=== PATIENT | female | born 1950 | race Two or more races ===

== ENCOUNTER 2020-07-10 10:15 | Outpatient (CLI) | payer MEDICARE, SELFPAY | END 2020-07-10 10:16 | disposition home or self-care (01) | LOC: ANHLAB 10:21 | PROVIDERS: Visit Provider Internal Medicine Hematology & Oncology | DX: D50.9 Iron deficiency anemia, unspecified (principal) | CPT/HCPCS: 36415; 81257 ==

== ENCOUNTER 2020-08-06 14:59 | Outpatient (CLI) | payer MEDICARE, SELFPAY ==
--- NOTE | ~2020-08-06 | MM_ITS ---
EXAMINATION: MM screening sravanthi BI w marisol HISTORY: Screening TECHNIQUE: Craniocaudal and mediolateral oblique 3-D tomosynthesis images were obtained and synthetic 2-D images were generated. CAD analysis was submitted and interpreted. COMPARISON: No prior mammogram is available for comparison at this institution. BREAST PARENCHYMAL COMPOSITION: The breasts are heterogeneously dense, which may obscure small masses . FINDINGS: There are bilateral breast masses some of which are partially calcified. Right breast christian s located in the upper central aspect of the right breast posteriorly and multiple left breast masses are identified in the subareolar location as well as the upper outer quadrant. IMPRESSION: 1. Bilateral breast masses. 2. Additional mammographic views and possible breast ultrasound are recommended. BI-RADS Category 0: Incomplete: Needs additional imaging evaluation. Reviewed, dictated and finalized at location A. IMPRESSION: 1. Bilateral breast masses. 2. Additional mammographic views and possible breast ultrasound are recommended . BI-RADS Category 0: Incomplete: Needs additional imaging evaluation.
== END 2020-08-06 15:00 | disposition home or self-care (01) ==
PROVIDERS: Visit Provider Nurse Practitioner
DX: Z12.31 Encounter for screening mammogram for malignant neoplasm of breast (principal); R92.8 Other abnormal and inconclusive findings on diagnostic imaging of breast
CPT/HCPCS: 77063; 77067

== ENCOUNTER 2020-09-03 13:25 | Outpatient (CLI) | payer MEDICARE, SELFPAY ==
--- NOTE | ~2020-09-03 | MMUS_ITS ---
EXAMINATION: MM diagnostic mammo BI, US breast BI complete HISTORY: Bilateral breast masses noted on 08/06/2020 screening mammogram examination TECHNIQUE: Additional 3-D tomosynthesis images of both breasts were performed and synthetic 2-D image s were generated. CAD analysis was submitted and interpreted. High resolution complete bilateral arin st ultrasound was performed. 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 No suspicious right breast mass is noted. Minimal benign calcification. No architectural distortion, skin thickening or retraction is noted on the right. Left breast: Approximately 12 mm subareolar heavily calcified fibroadenoma. Approximately 1.2 x 1.5 cm 12:00 anterior mass with peripheral 1 mm benign appearing calcification, l ikely a partially calcified fibroadenoma. 9 mm partially calcified fibroadenoma in the upper outer quadrant of the right breast. ULTRASOUND: Right breast: 12:00 3 cm from nipple: 5.5 x 5.9 mm circumscribed hypoechoic mass with calcification, likely a fibro adenoma; 6 month diagnostic mammogram and ultrasound follow up or recommended. 11:00 6 cm from nipple: 2.8 x 6.5 mm circumscribed hypoechoic lesion without internal vascularity or posterior shadowing, likely benign. Six-month diagnostic mammogram and ultrasound follow-up are recom mended. Left breast: 12:00 2 cm from nipple: 4.5 x 9 mm parallel circumscribed hypoechoic lesion with calcifications 12:00 near nipple: Circumscribed lobular heterogeneous hypoechoic 2.2 x 14 x 16.2 mm lobular mass wit hout posterior features or internal vascularity; six-month follow-up diagnostic mammogram and ultraso und examination are recommended. 9:00 subareolar area heavily calcified shadowing lesion measuring up to 1.7 cm approximate maximal di mension, consistent with a heavily calcified fibroadenoma. IMPRESSION: 1. Bilateral probably benign breast masses 2. 6 month bilateral mammogram and ultrasound follow-up are recommended. BI-RADS category 3, probably benign findings. Reviewed, dictated and finalized at location A. IMPRESSION: 1. Bilateral probably benign breast masses 2. 6 month bilateral mammogram and ultrasound follow-up are recommended. BI-RADS category 3, probably benign findings.
== END 2020-09-03 13:26 | disposition home or self-care (01) ==
DX: R92.1 Mammographic calcification found on diagnostic imaging of breast (principal); N63.23 Unspecified lump in the left breast, lower outer quadrant; N63.42 Unspecified lump in left breast, subareolar; N63.15 Unspecified lump in the right breast, overlapping quadrants
CPT/HCPCS: 76641; 77066